=== PATIENT | male | born 2000 | race Caucasian/White ===

== ENCOUNTER 2018-06-27 09:03 | Emergency (ER) | payer OTHER, SELFPAY ==
[2018-06-27 09:06] VITALS: BP 106/68; PULSE 72; RESP 20; TEMP 36.7; O2SAT 100
--- NOTE | 2018-06-27 09:12 | DI.RAD.S_ITS ---
PROCEDURE: XR CHEST 1V INDICATIONS: chest pain TECHNIQUE: One view of the chest was acquired. COMPARISON: None. FINDINGS: Surgical changes and devices: None. Lungs and pleura: Increased interstitial markings within the bilateral infrahilar regions and perihilar regions are present without a focal area of consolidation. No effusion or pneumothorax is identified. Mediastinum: Mediastinal contours appear normal. Heart size is normal. Bones and chest wall: No suspicious bony lesions. Overlying soft tissues appear unremarkable. IMPRESSION: Prominent perihilar lung markings may be related to viral bronchiolitis. Superimposed developing pneumonia is difficult to exclude. Dictated by: Jorje Mtz M.D. on 06/27/2018 at 9:10 Approved by: Jorje Mtz M.D. on 06/27/2018 at 9:10
[2018-06-27 09:30] VITALS: BP 107/62; BP 113/60; BP 117/48; PULSE 60; PULSE 62; PULSE 70
--- NOTE | 2018-06-27 09:34 | ED.SYNCOPE ---
HPI - Syncope General Chief Complaint: Syncope Stated Complaint: Passed out Time Seen by Provider: 06/27/18 09:25 Source: patient Mode of arrival: ambulatory Limitations: no limitations History of Present Illness HPI narrative: 18-year-old otherwise healthy, nonsmoking male presents with an episode of syncope witnessed by bystanders this morning. He had just completed an intense workout and started feeling a bit dizzy and lightheaded and then had a syncopal episode. It apparently lasted less than 1 min and he eventually came to. By his arrival here he is completely asymptomatic and denies any ongoing symptoms. Leading up to this he has felt fine and in normal state of health. He denies any nausea, vomiting or diarrhea. He denies any chest pain or palpitations. He denies any change in diet or medications. He denies any significant alcohol, nicotine or caffeine. He did have a similar episode about 4 months ago that was thought to be related to heavy exertion in the setting of lack of appropriate oral hydration. He was seen at [facility] and had a thorough evaluation with referral to Cardiology. He had normal labs, EKGs and no structural abnormality on echocardiogram. He was referred to the [facility] cardiology group and Holter monitor noting no significant findigns. complaint: loss of consciousness Onset (ago): minute(s) -: second(s) Prodromal symptoms: none Witnessed: yes - by bystander Context: during exertion Injuries sustained associated with event: none Current symptoms: none Treatments prior to arrival: none Related Data Home Medications Medication Instructions Recorded Confirmed ascorbic acid (vitamin C) [Vitamin 500 mg PO DAILY 06/27/18 06/27/18 C] Allergies Allergy/AdvReac Type Severity Reaction Status Date / Time No Known Drug Allergies Allergy Verified 06/27/18 09:11 Review of Systems Review of Systems All systems reviewed & are unremarkable except as noted in HPI and below Constitutional Denies chills, Denies fever(s), Denies lethargy and Denies weakness Eyes Denies change in vision, Denies eye discharge, Denies irritation and Denies loss of vision ENT Ears, Nose, Mouth, and Throat: Denies change in voice, Denies neck pain and Denies sore throat Cardiovascular Denies chest pain, Reports syncope, Denies irregular heart rhythm, Denies lightheadedness, Denies palpitations, Denies dyspnea, Denies dyspnea on exertion and Denies orthopnea Respiratory Denies cough, Denies dyspnea, Denies dyspnea on exertion and Denies wheezing Gastrointestinal Gastrointestinal: Denies abdominal pain, Denies change in bowel habits, Denies diarrhea, Denies nausea and Denies vomiting Genitourinary Denies hematuria, Denies flank pain, Denies urinary incontinence and Denies urinary urgency Musculoskeletal Denies neck pain Integumentary/Breasts Denies pruritus, Denies erythema, Denies rash and Denies wounds Neurologic Denies confusion, Reports syncope, Denies loss of vision and Denies weakness Psychiatric Denies anxiety, Denies confusion, Denies depression, Denies homicidal ideation and Denies suicidal ideation Endocrine Denies palpitations Hematologic/Lymphatic Denies easy bruising Allergic/Immunologic Denies wheezing [facility] Social History Smoking Status: Never smoker Exam Narrative Exam Narrative: GENERAL: This is a well-nourished, well-developed patient, in mild distress. HEAD: Atraumatic. Normocephalic. No temporal or scalp tenderness. EYES: Pupils equal round and reactive. Extraocular motions intact. No scleral icterus. No injection or drainage. ENT: Nose without bleeding, purulent drainage or septal hematoma. Throat without erythema, tonsillar hypertrophy or exudate. Uvula midline. Airway patent. NECK: Trachea midline. No JVD or lymphadenopathy. Supple, nontender, no meningeal signs. CARDIOVASCULAR: Regular rate and rhythm without murmurs, gallops, or rubs. RESPIRATORY: Clear to auscultation. Breath sounds equal bilaterally. No wheezes, rales, or rhonchi. GASTROINTESTINAL: Abdomen soft, non-tender, nondistended. No hepato-splenomegaly, or palpable masses. No guarding. EXTREMITIES: No clubbing, cyanosis, or edema. No joint tenderness, effusion, or edema noted. BACK: Nontender without deformity or crepitance. No flank tenderness. NEURO: AOx3. SKIN: No rash or erythema. Initial Vital Signs Initial Vital Signs: Vital Signs Temperature 98.0 F 06/27/18 09:06 Pulse Rate 72 06/27/18 09:06 Respiratory Rate 20 06/27/18 09:06 Blood Pressure 106/68 06/27/18 09:06 Pulse Oximetry 100 06/27/18 09:06 Course Orders Ordered: ED Orders 06/27/18 09:11 EKG-12 Lead Stat 06/27/18 09:12 XR chest 1V Stat 06/27/18 09:42 Complete Blood Count AUTO DIFF Stat Comprehensive Metabolic Panel Stat Lipase Stat Partial Thromboplastin Time Stat Prothrombin Time INR Stat Troponin & CK Cardiac Panel Stat Discontinued Medications Sodium Chloride (Normal Saline 0.9%) 1,000 mls @ 1,000 mls/hr IV BOLUS ONE Stop: 06/27/18 10:35 Last Infusion: 06/27/18 10:30 Dose: 0 mls/hr Admin: 06/27/18 09:40 Dose: 1,000 mls/hr Reevaluation(s) Reevaluation #1: Patient continues to feel asymptomatic and at baseline Consultations Consultation #1: Patient's rn cvicu, Dr. Thacker from [facility] has been contacted and wishes to see patient in the clinic for a discussion about a loop recorder. Vital Signs - 8 hr 06/27/18 09:06 06/27/18 09:30 06/27/18 09:38 Temperature 98.0 F Pulse Rate 72 70 Pulse Rate [Orthostatic Lying] 70 Pulse Rate [Orthostatic Sitting] 62 Pulse Rate [Orthostatic Standing] 60 Respiratory Rate 20 12 Blood Pressure 106/68 Blood Pressure [Left Arm] 117/48 L Blood Pressure [Orthostatic Lying] 117/48 L Blood Pressure [Orthostatic Sitting] 113/60 Blood Pressure [Orthostatic Standing] 107/62 Pulse Oximetry 100 100 06/27/18 10:07 06/27/18 10:42 Temperature Pulse Rate 77 75 Pulse Rate [Orthostatic Lying] Pulse Rate [Orthostatic Sitting] Pulse Rate [Orthostatic Standing] Respiratory Rate 14 12 Blood Pressure Blood Pressure [Left Arm] 109/59 L 119/67 Blood Pressure [Orthostatic Lying] Blood Pressure [Orthostatic Sitting] Blood Pressure [Orthostatic Standing] Pulse Oximetry 98 98 MDM - Syncope Differential Diagnosis Likely syncope due to orthostatic hypotension and vasovagal syncope Medical Records Attestation: I reviewed the patient's medical records. Lab Data Attestation: I reviewed the patient's lab results. Result diagrams: 06/27/18 09:42 06/27/18 09:42 Lab Results 06/27/18 06/27/18 06/27/18 Range/Units 09:42 09:42 09:42 WBC 14.3 H (4.5-11.0) X10^3/uL RBC 5.12 (4.5-5.9) X10^6/uL Hgb 15.5 (13.5-17.5) g/dL Hct 45.6 (41-53) % MCV 88.9 (80-100) fL MCH 30.3 (26-34) PG MCHC 34.1 (30-36) % RDW 12.9 (11.6-14.8) % Plt Count 223 (150-400) X10^3/uL Neut % (Auto) 81.6 H (50-75) % Lymph % (Auto) 11.9 L (25-40) % [place] % (Auto) 5.6 (3-14) % Eos % (Auto) 0.5 L (2-4) % Baso % (Auto) 0.4 (0-2) % Neut # (Auto) 74687 H (9281-5212) /uL PT 12.3 (10.1-12.7) SECONDS INR 1.1 (0.9-1.3) APTT 27 (26.4-36.2) SECONDS Sodium 140 (137-145) mmol/L Potassium 4.6 (3.4-5.1) mmol/L Chloride 101 (98-107) mmol/L Carbon Dioxide 30 (22-32) mmol/L BUN 17 (9-20) mg/dL Creatinine 1.10 (0.66-1.25) mg/dL Estimated GFR > 60.0 (>60) mL/min BUN/Creatinine Ratio 15.5 (6-22) Glucose 87 (70-100) mg/dL Calcium 8.9 (8.4-10.2) mg/dL Total Bilirubin 0.5 (0.2-1.3) mg/dL AST 26 (17-59) IU/L ALT 29 (21-72) IU/L Alkaline Phosphatase 71 (38-126) U/L Total Creatine Kinase 87 (55-170) U/L CK-MB (CK-2) TNP CK-MB (CK-2) Rel Index TNP Troponin I < 0.012 (0.01-0.034) ng/mL Total Protein 6.9 (6.3-8.2) g/dL Albumin 4.3 (3.5-5.0) g/dL Globulin 2.6 (1.7-4.1) g/dL Albumin/Globulin Ratio 1.7 (1.0-2.8) Lipase 34 (23-300) U/L ECG Data Attestation: I personally reviewed and interpreted this ECG as follows: Prior ECG tracings: available for review Interpretation: Normal sinus rhythm in the 60s without signs of ectopy or ischemia. No ST segmental elevations or depressions, no T-wave abnormalities MDM Narrative Medical decision making narrative: syncope in the setting of exertion is concerning, however thorough cardiac evaluation has ruled out structural disease and holter showed no concerning arrhythmias. Discussion has been regarding likely dx of vasavagal syncope and his rn cvicu wishes to see him in follow up to continue to pursue diagnosis. Return precautions given Discharge Plan Departure Patient Disposition: Home Clinical Impression: Vasovagal syncope Instructions: DI for Syncope in Adults (Fainting) Activity Restrictions/Additional Instructions: *You have been diagnosed with [ vasovagal syncope ] *What to do: *Continue to take medications as directed *No futher exertion or workouts utnil follow up *Follow up with your Coping Machine Operator at [facility] (Dr. Thacker) I spoke with him today and he wants to get you set up for another test. Call for an appointment ([phone]). Let them know you were seen in the Emergency Department and that we ask that you be seen in follow up *Return to ER if you should have any new, worsening or concerning symptoms, such as [chest pain, palpitations, dizziness, weakness, lightheadedness ] Prescriptions: No Action ascorbic acid (vitamin C) [Vitamin C] 1,000 mg Tablet 500 mg PO DAILY RF: 0
[2018-06-27 09:38] VITALS: BP 117/48; PULSE 70; RESP 12; O2SAT 100
[2018-06-27] MEDS: SODIUM CHLORIDE 0.9% 1,000 ML 1000 ML IV (09:40)
[2018-06-27 09:49] LABS: Add Manual Diff / Slide Review NO; Basophils Percent Auto 0.4 % (0-2); Eosinophils Percent Auto 0.5 % (2-4); Hematocrit 45.6 % (41-53); Hemoglobin 15.5 g/dL (13.5-17.5); Lymphocytes Percent Auto 11.9 % (25-40); Mean Corpuscular HGB Conc 34.1 % (30-36); Mean Corpuscular Hemoglobin 30.3 PG (26-34); Mean Corpuscular Volume 88.9 fL (80-100); Monocytes Percent Auto 5.6 % (3-14); Neutrophils Absolute Auto 11700 /uL (3000-5900); Neutrophils Percent Auto 81.6 % (50-75); Platelet Count 223 X10^3/uL (150-400); Red Blood Cell Count 5.12 X10^6/uL (4.5-5.9); Red Cell Distribution Width 12.9 % (11.6-14.8); White Blood Cell Count 14.3 X10^3/uL (4.5-11.0)
--- NOTE | 2018-06-27 09:50 | PC.NURSE ---
Of note: when pt changed positions, his heart rate would increase to 90s and fall to 60 quickly. Did not feel dizzy or ill during this time.
[2018-06-27 09:57] LABS: INR 1.1 (0.9-1.3); Prothrombin Time 12.3 SECONDS (10.1-12.7)
[2018-06-27 10:00] LABS: PTT Partial Thromboplastin Tim 27 SECONDS (26.4-36.2)
[2018-06-27 10:02] LABS: Alanine Aminotransferase 29 IU/L (21-72); Albumin 4.3 g/dL (3.5-5.0); Albumin Globulin Ratio 1.7 (1.0-2.8); Alkaline Phosphatase 71 U/L (38-126); Aspartate Aminotransferase 26 IU/L (17-59); BUN Creatinine Ratio 15.5 (6-22); Bilirubin Total 0.5 mg/dL (0.2-1.3); Blood Urea Nitrogen 17 mg/dL (9-20); Calcium 8.9 mg/dL (8.4-10.2); Carbon Dioxide 30 mmol/L (22-32); Chloride 101 mmol/L (98-107); Creatine Kinase 87 U/L (55-170); Estimated Glomerular Filt Rate > 60.0 mL/min (>60); Globulin 2.6 g/dL (1.7-4.1); Glucose 87 mg/dL (70-100); HEMOLYSIS < 15 (0-50); Lipase 34 U/L (23-300); Potassium 4.6 mmol/L (3.4-5.1); Sodium 140 mmol/L (137-145); Total Protein 6.9 g/dL (6.3-8.2)
--- NOTE | 2018-06-27 10:05 | PC.NURSE ---
Neuro exam normal. [facility] 0
[2018-06-27 10:07] VITALS: BP 109/59; PULSE 77; RESP 14; O2SAT 98
[2018-06-27 10:37] LABS: Troponin I < 0.012 ng/mL (0.01-0.034)
[2018-06-27 10:42] VITALS: BP 119/67; PULSE 75; RESP 12; O2SAT 98
== END 2018-06-27 10:50 | disposition home or self-care (01) ==
PROVIDERS: Emergency Provider Emergency Medicine
DX: R55 Syncope and collapse (principal)
CPT/HCPCS: 36415; 71045; 80053; 82550; 83690; 84484; 85025; 85610; 85730; 93005; 96360; 99283; 99285

== ENCOUNTER → 2022-04-19 07:43 | Outpatient (CLI) | payer OTHER, SELFPAY ==
--- NOTE | 2022-04-19 | DI.ECHO.S_ITS ---
[facility] +---------+ : : [address] : [place] : : : : [id number] : : : : Phone: [phone] Echocardiogram Report + + :Name: MARLENE ROCKWELL Study Date: 04/19/2022 Height: 69 in : :[facility] ReadingLocation: Weight: 250 lb : : Gender: Male BSA: 2.3 m2 : :: 2000 Age: 21 yrs BP: 137/81 mmHg: :Reason For Study: CHEST PAIN : :Ordering Physician: ROYA, : :PUALA Performed By: Nika Champagne : :Referring: PAULA PRYOR : + + Interpretation Summary Normal sinus rhythm. Normal LV size, wall thickness, wall motion and LV systolic function. EF is 60-65%. Normal chamber sizes. No significant valvular abnormalities. No prior study available for comparison. Procedure: A two-dimensional transthoracic echocardiogram with color flow and Doppler was performed. The study quality was technically adequate. There is no prior echocardiogram noted for this patient. The patient was in sinus rhythm with heart rates between 65-75 bpm during the exam. Left Ventricle: The left ventricle is normal in size and wall thickness. The ejection fraction is estimated to be 60-65%. Right Ventricle: The right ventricle is normal in size, thickness and function. The right ventricular systolic function is normal. Atria: Both atria are normal in size. There is no Doppler evidence for an interatrial shunt. Mitral Valve: The mitral valve is normal in structure and function. There is trace mitral regurgitation. Aortic Valve: The aortic valve is trileaflet. The aortic valve opens well. There is no aortic valve stenosis. No aortic regurgitation is present. Tricuspid Valve: The tricuspid valve is normal in structure and function. There is trace tricuspid regurgitation. Pulmonic Valve: The pulmonic valve leaflets are thin and pliable; valve motion is normal. There is no pulmonic valvular regurgitation. Great Vessels: The aortic root is normal size. The dimensions of the ascending aorta are normal. The IVC is of normal diameter and collapses greater than 50% with a sniff. This suggests a low right atrial pressure of 3 mm Hg. Pericardium/ Pleura There is no pericardial effusion. There is no pleural effusion. MMode/2D Measurements & Calculations LVIDd: 5.0 cm LVOT diam: 2.0 cm LVIDs: 3.5 cm Ao root diam: 2.9 cm FS: 29.7 % asc Aorta Diam: 2.7 cm EPSS: 0.67 cm Ao Arch Diam (Prox Trans): 2.5 cm IVSd: 0.79 cm LVPWd: 1.0 cm LV gray. diameter/BSA (cm/m^2): 2.2 LV sys. diameter/BSA (cm/m^2): 1.5 LA A2 area: 21.0 cm2 RA long axis: 5.4 cm LA A4 area: 21.1 cm2 RA area: 17.2 cm2 LA length (vol): 5.9 cm RA vol: 47.1 ml LA vol: 63.8 ml RA : 20.7 ml/m2 LA vol index: 28.1 ml/m2 IVC diam: 1.7 cm RVD1 (basal): 4.4 cm TAPSE: 2.0 cm Doppler Measurements & Calculations Ao V2 max: 121.3 cm/sec LVOT Max Norberto: 93.3 cm/sec Ao V2 mean: 81.5 cm/sec LV V1 max P.5 mmHg Ao max P.9 mmHg LV V1 VTI: 18.1 cm Ao mean P.0 mmHg CONNIE(I,D): 2.4 cm2 Ao V2 VTI: 24.2 cm CONNIE(V,D): 2.4 cm2 sev ratio: 0.75 CONNIE indexed to BSA (cm^2/m^2): 1.0 MV E max norberto: 74.0 cm/sec PA V2 max: 99.3 cm/sec MV A max norberto: 48.8 cm/sec PA V2 mean: 69.5 cm/sec MV E/A: 1.5 PA mean P.2 mmHg Med Peak E' Norberto: 11.1 cm/sec PA pr(Accel): 24.2 mmHg E/E' med: 6.7 Lat Peak E' Norberto: 17.8 cm/sec E/E' lat: 4.2 E/e' average: 5.4 MV dec time: 0.19 sec SV(LVOT): 57.1 ml Electronically signed by: Brynn Kidd M.D. on Reading Physician:04/19/2022 07:48 PM
== END ==
PROVIDERS: Referring Provider Orthopaedic Surgery; Visit Provider Orthopaedic Surgery
DX: R07.9 Chest pain, unspecified (principal); Z00.00 Encounter for general adult medical examination without abnormal findings
CPT/HCPCS: 93306

== ENCOUNTER → 2024-08-18 16:31 | Outpatient (CLI) | payer OTHER, SELFPAY ==
--- NOTE | 2024-08-18 16:34 | DI.RAD.S_ITS ---
P wall ROCEDURE: XR TOE RT MIN 2V INDICATIONS: GREAT TOE PAIN TECHNIQUE: 3 views of the great toe(s), 1 of which involved all 5 toes, acquired. COMPARISON: None. FINDINGS: Bones: No fractures or dislocations. No suspicious bony lesions. Soft tissues: No suspicious soft tissue densities. IMPRESSION: No acute bony abnormality. Dictated by: Valdo Estrada M.D. on 08/19/2024 at 18:35 Approved by: Valdo Estrada M.D. on 08/19/2024 at 18:37
== END ==
LOC: RAD 16:33
PROVIDERS: PCP Family Medicine; Referring Provider Family Medicine; Visit Provider Family Medicine
DX: M79.674 Pain in right toe(s) (principal)
CPT/HCPCS: 73660